=== PATIENT | female | born 1940 | race Caucasian/White ===

== ENCOUNTER 2022-01-09 21:52 | Inpatient (IN) | payer BC, MEDICARE ==
[~2022-01-09] VITALS: Ht 167.6 cm; Wt 64.4 kg
[2022-01-09] MEDS ORDERED: ISOVUE-370 76% 100ML VIAL As Ordered ONE (22:25)
[2022-01-09 22:29] LABS: BASO # 0.1 10^3/uL (0.0-0.2); BASO % 0.5 % (0.0-1.0); EOS # 0.2 10^3/uL (0.0-0.5); EOS % 1.5 % (0.0-3.0); HEMATOCRIT 46.1 % (36.0-47.0); HEMOGLOBIN 15.1 g/dl (12.0-15.5); LYMPH # 2.4 10^3/uL (1.5-5.0); LYMPH % 21.5 % (24.0-44.0); MEAN CORPUSCULAR HEMOGLOBIN 28.4 pg (27.0-33.0); MEAN CORPUSCULAR HGB CONC 32.8 g/dl (32.0-36.5); MEAN CORPUSCULAR VOLUME 86.8 fl (80.0-96.0); MONO # 0.9 10^3/uL (0.0-0.8); NEUTROPHILS # 7.7 10^3/uL (1.5-8.5); NEUTROPHILS % 68.1 % (36.0-66.0); PLATELET COUNT, AUTOMATED 364 10^3/uL (150-450); RED BLOOD COUNT 5.31 10^6/uL (4.00-5.40); WHITE BLOOD COUNT 11.3 10^3/uL (4.0-10.0)
[2022-01-09 23:11] LABS: BILIRUBIN,DIRECT 0.1 MG/DL (0.0-0.2); BILIRUBIN,TOTAL 0.3 MG/DL (0.2-1.0); TOTAL PROTEIN 8.2 GM/DL (6.4-8.2)
[2022-01-09] MEDS ORDERED: ACETAMINOPHEN TAB 650MG DOSE (2X325MG) PO ONE (23:25)
[2022-01-09] MEDS ORDERED: ENOXAPARIN 60MG/0.6ML SYRINGE (J1650 PER 10MG) SC ONE (23:40)
[2022-01-10 00:55] LABS: C REACTIVE PROTEIN QUANTITATIV 0.32 MG/DL (0.00-0.30)
[2022-01-10 01:17] LABS: ERYTHROCYTE SEDIMENTATION RATE 22 mm/hr (0-30)
[2022-01-10] MEDS: IPRATROPIUM 0.5MG/ALBUTEROL 2.5MG INH SOL UD 3ML (DUONEB) NEB SCH ×4 (02:00→20:00)
[2022-01-10 02:34] LABS: CK-MB VALUE MASS 2.9 NG/ML (<3.6); MB/CK RELATIVE INDEX 4.39 (< OR =4)
[2022-01-10] MEDS ORDERED: ACETAMINOPHEN TAB 650MG DOSE (2X325MG) PO PRN (02:35)
[2022-01-10] MEDS ORDERED: IPRATROPIUM 0.5MG/ALBUTEROL 2.5MG INH SOL UD 3ML (DUONEB) NEB PRN (02:35)
[2022-01-10] MEDS ORDERED: hydrALAZINE 20MG/ML 1ML VIAL (J0360 PER 20MG) IV ONE (04:00)
[2022-01-10 06:00] VITALS: BP 127/74
[2022-01-10 06:25] LABS: BASO % 0.4 % (0.0-1.0); EOS # 0.2 10^3/uL (0.0-0.5); EOS % 1.7 % (0.0-3.0); HEMATOCRIT 44.1 % (36.0-47.0); HEMOGLOBIN 14.6 g/dl (12.0-15.5); LYMPH # 2.6 10^3/uL (1.5-5.0); LYMPH % 27.2 % (24.0-44.0); MEAN CORPUSCULAR HEMOGLOBIN 28.6 pg (27.0-33.0); MEAN CORPUSCULAR HGB CONC 33.1 g/dl (32.0-36.5); MEAN CORPUSCULAR VOLUME 86.5 fl (80.0-96.0); MONO # 0.8 10^3/uL (0.0-0.8); MONO % 7.9 % (2.0-8.0); NEUTROPHILS # 6.1 10^3/uL (1.5-8.5); NEUTROPHILS % 62.5 % (36.0-66.0); PLATELET COUNT, AUTOMATED 333 10^3/uL (150-450); WHITE BLOOD COUNT 9.7 10^3/uL (4.0-10.0)
[2022-01-10] MEDS ORDERED: AMLO1TAB24 PO (06:31)
[2022-01-10] MEDS ORDERED: ALEN70TA82 PO (06:31)
[2022-01-10] MEDS ORDERED: CITRTAB6 PO (06:31)
[2022-01-10] MEDS ORDERED: FURO20TA2 PO (06:31)
[2022-01-10] MEDS ORDERED: ATOR40TA75 PO (06:31)
[2022-01-10] MEDS ORDERED: CLOTLOT EXT (06:31)
[2022-01-10] MEDS ORDERED: ASPI-161 PO (06:31)
[2022-01-10] MEDS ORDERED: QUET1TAB17 PO ×2 (06:31)
[2022-01-10] MEDS ORDERED: OMEG100011 PO (06:31)
[2022-01-10] MEDS ORDERED: POTA1TAB14 PO (06:31)
[2022-01-10] MEDS ORDERED: HOME MED LIST COMPLETE! XX SCH (06:35)
[2022-01-10 06:44] LABS: INR 1.07; PROTHROMBIN TIME 14.3 SECONDS (12.7-14.5)
[2022-01-10 06:45] LABS: PARTIAL THROMBOPLASTIN TIME 40.2 SECONDS (25.9-37.0)
[2022-01-10 07:07] LABS: BLOOD UREA NITROGEN 22 MG/DL (7-18); CALCIUM LEVEL 10.4 MG/DL (8.8-10.2); CARBON DIOXIDE LEVEL 27 MEQ/L (21-32); CHLORIDE LEVEL 99 MEQ/L (98-107); CREATININE FOR GFR 0.93 MG/DL (0.55-1.30); GLOMERULAR FILTRATION RATE > 60.0 (>32); GLUCOSE, FASTING 112 MG/DL (70-100); NT-PRO BNP 152 PG/ML (<450); POTASSIUM SERUM 4.3 MEQ/L (3.5-5.1); SODIUM LEVEL 132 MEQ/L (136-145)
[2022-01-10] MEDS: DOXYCYCLINE HYCLATE 100MG TABLET PO SCH ×2 (08:50→21:13)
[2022-01-10] MEDS: guaiFENesin ER 600 MG TAB PO SCH ×2 (08:50→21:13)
[2022-01-10] MEDS: LIDOCAINE 5% (LIDODERM) PATCH TD SCH (08:51)
[2022-01-10] MEDS ORDERED: ENOXAPARIN 60MG/0.6ML SYRINGE (J1650 PER 10MG) SC SCH (10:00)
[2022-01-10] MEDS ORDERED: ENOXAPARIN 40MG/0.4ML SYRINGE (J1650 PER 10MG) SC SCH (11:00)
[2022-01-10] MEDS ORDERED: KETOROLAC 30 MG/ML 1ML VIAL IV ONE (11:15)
[2022-01-10] MEDS ORDERED: MORPHINE 2 MG/ML 1ML VIAL IV PRN (11:30)
[2022-01-10] MEDS: ENOXAPARIN 60MG/0.6ML SYRINGE (J1650 PER 10MG) SC SCH ×2 (13:02→23:55)
[2022-01-10] MEDS: predniSONE 20 MG TAB PO SCH (13:02)
[2022-01-10] MEDS: ASPIRIN 81MG ENTERIC TABLET PO SCH (13:03)
[2022-01-10] MEDS: FUROSEMIDE 20 MG TAB PO SCH (13:03)
[2022-01-10] MEDS: amLODIPine 5 MG TAB PO SCH (13:03)
[2022-01-10] MEDS: SYMBICORT 160/4.5MCG INHALER 6GM INH SCH ×2 (13:34→20:00)
[2022-01-10 13:56] LABS: OSMOLALITY SERUM 284 MOSM/KG (280-301)
[2022-01-10 14:00] VITALS: BP 130/73
[2022-01-10 21:00] VITALS: BP 141/76
[2022-01-10] MEDS: QUEtiapine FUMARATE 25 MG TAB PO SCH (21:14)
[2022-01-10] MEDS: ACETAMINOPHEN 500 MG TAB PO SCH (21:14)
[2022-01-10] MEDS: **NOTE PATIENT COMMENT** MISC XX SCH (21:18)
[2022-01-11] MEDS: IPRATROPIUM 0.5MG/ALBUTEROL 2.5MG INH SOL UD 3ML (DUONEB) NEB SCH ×4 (01:32→19:41)
[2022-01-11 02:00] VITALS: O2SAT 94
[2022-01-11 05:40] VITALS: BP 141/69
[2022-01-11 06:41] LABS: BASO % 0.3 % (0.0-1.0); EOS % 0.2 % (0.0-3.0); HEMATOCRIT 41.1 % (36.0-47.0); HEMOGLOBIN 13.6 g/dl (12.0-15.5); LYMPH # 2.3 10^3/uL (1.5-5.0); LYMPH % 24.4 % (24.0-44.0); MEAN CORPUSCULAR HEMOGLOBIN 28.2 pg (27.0-33.0); MEAN CORPUSCULAR HGB CONC 33.1 g/dl (32.0-36.5); MEAN CORPUSCULAR VOLUME 85.3 fl (80.0-96.0); MONO # 0.7 10^3/uL (0.0-0.8); MONO % 7.3 % (2.0-8.0); NEUTROPHILS # 6.2 10^3/uL (1.5-8.5); NEUTROPHILS % 67.5 % (36.0-66.0); PLATELET COUNT, AUTOMATED 303 10^3/uL (150-450); RED BLOOD COUNT 4.82 10^6/uL (4.00-5.40); WHITE BLOOD COUNT 9.3 10^3/uL (4.0-10.0)
[2022-01-11 07:27] LABS: BLOOD UREA NITROGEN 19 MG/DL (7-18); CALCIUM LEVEL 9.8 MG/DL (8.8-10.2); CARBON DIOXIDE LEVEL 27 MEQ/L (21-32); CHLORIDE LEVEL 97 MEQ/L (98-107); CREATININE FOR GFR 0.93 MG/DL (0.55-1.30); GLOMERULAR FILTRATION RATE > 60.0 (>32); GLUCOSE, FASTING 94 MG/DL (70-100); MAGNESIUM LEVEL 1.9 MG/DL (1.8-2.4); PHOSPHORUS LEVEL 2.8 MG/DL (2.5-4.9); POTASSIUM SERUM 4.2 MEQ/L (3.5-5.1); SODIUM LEVEL 128 MEQ/L (136-145)
[2022-01-11] MEDS: SYMBICORT 160/4.5MCG INHALER 6GM INH SCH ×2 (07:31→19:40)
[2022-01-11 08:00] VITALS: BP 141/69
[2022-01-11] MEDS: guaiFENesin ER 600 MG TAB PO SCH ×2 (09:58→22:14)
[2022-01-11] MEDS: ACETAMINOPHEN 500 MG TAB PO SCH ×2 (09:59→22:15)
[2022-01-11] MEDS: DOXYCYCLINE HYCLATE 100MG TABLET PO SCH ×2 (10:00→22:14)
[2022-01-11] MEDS: predniSONE 20 MG TAB PO SCH (10:00)
[2022-01-11] MEDS: FUROSEMIDE 20 MG TAB PO SCH (10:00)
[2022-01-11] MEDS: amLODIPine 5 MG TAB PO SCH (10:00)
[2022-01-11] MEDS: LIDOCAINE 5% (LIDODERM) PATCH TD SCH (10:01)
[2022-01-11] MEDS: ASPIRIN 81MG ENTERIC TABLET PO SCH (10:01)
[2022-01-11] MEDS: ENOXAPARIN 60MG/0.6ML SYRINGE (J1650 PER 10MG) SC SCH ×2 (11:42→22:15)
[2022-01-11] MEDS ORDERED: NS 1,000 ML IV SCH (12:50)
[2022-01-11] MEDS: **NOTE PATIENT COMMENT** MISC XX SCH (21:27)
[2022-01-11 21:30] VITALS: BP 126/64
[2022-01-11] MEDS ORDERED: ONDANSETRON 4MG 2ML VIAL IV PRN (21:45)
[2022-01-11] MEDS ORDERED: MAALOX 30 ML SUSP *UDC PO PRN (21:45)
[2022-01-11] MEDS: QUEtiapine FUMARATE 25 MG TAB PO SCH (22:14)
[2022-01-12] MEDS: IPRATROPIUM 0.5MG/ALBUTEROL 2.5MG INH SOL UD 3ML (DUONEB) NEB SCH ×4 (02:00→19:23)
[2022-01-12 03:08] VITALS: O2SAT 96
[2022-01-12 05:05] VITALS: BP 146/71
[2022-01-12 06:37] LABS: HEMOGLOBIN 13.5 g/dl (12.0-15.5); MEAN CORPUSCULAR HEMOGLOBIN 28.4 pg (27.0-33.0); MEAN CORPUSCULAR HGB CONC 32.1 g/dl (32.0-36.5); MEAN CORPUSCULAR VOLUME 88.2 fl (80.0-96.0); PLATELET COUNT, AUTOMATED 325 10^3/uL (150-450); RED BLOOD COUNT 4.76 10^6/uL (4.00-5.40); WHITE BLOOD COUNT 10.7 10^3/uL (4.0-10.0)
[2022-01-12 07:06] LABS: CALCIUM LEVEL 9.5 MG/DL (8.8-10.2); CREATININE FOR GFR 0.95 MG/DL (0.55-1.30); GLOMERULAR FILTRATION RATE 59.8 (>32); PHOSPHORUS LEVEL 2.6 MG/DL (2.5-4.9); POTASSIUM SERUM 4.4 MEQ/L (3.5-5.1)
[2022-01-12] MEDS: SYMBICORT 160/4.5MCG INHALER 6GM INH SCH ×2 (07:20→19:23)
[2022-01-12 08:20] LABS: APPEARANCE, URINE MANUAL CLEAR (CLEAR)
[2022-01-12 08:21] LABS: BILIRUBIN, URINE MANUAL NEGATIVE (NEGATIVE); BLOOD URINE MANUAL NEGATIVE (NEGATIVE); COLOR, URINE MANUAL YELLOW (YELLOW); GLUCOSE, URINE (UA) MANUAL NEGATIVE (NEGATIVE); KETONE, URINE MANUAL NEGATIVE (NEGATIVE); LEUKOCYTE ESTERASE, URINE MAN POSITIVE (NEGATIVE); NITRITE, URINE MANUAL NEGATIVE (NEGATIVE); PROTEIN, URINE MANUAL NEGATIVE (NEGATIVE); UROBILINOGEN, URINE MANUAL NORMAL (NORMAL)
[2022-01-12 08:35] LABS: BACTERIA, URINE SMALL AMOUNT; RBC, URINE 0-1 /hpf (0-3); SQUAMOUS EPITHELIAL CELL URINE SMALL AMOUNT /hpf (SMALL AMT)
[2022-01-12 08:36] LABS: HYALINE CAST, URINE NONE SEEN /lpf (0-1)
[2022-01-12 09:00] VITALS: O2SAT 92
[2022-01-12] MEDS: DOXYCYCLINE HYCLATE 100MG TABLET PO SCH ×2 (09:29→22:17)
[2022-01-12] MEDS: ATORVASTATIN 20 MG TAB PO SCH (09:29)
[2022-01-12] MEDS: ACETAMINOPHEN 500 MG TAB PO SCH ×2 (09:30→22:18)
[2022-01-12] MEDS: amLODIPine 5 MG TAB PO SCH (09:30)
[2022-01-12] MEDS: predniSONE 20 MG TAB PO SCH (09:30)
[2022-01-12] MEDS: guaiFENesin ER 600 MG TAB PO SCH ×2 (09:30→22:16)
[2022-01-12] MEDS: ASPIRIN 81MG ENTERIC TABLET PO SCH (09:30)
[2022-01-12] MEDS: ENOXAPARIN 60MG/0.6ML SYRINGE (J1650 PER 10MG) SC SCH ×2 (09:31→22:17)
[2022-01-12] MEDS: LIDOCAINE 5% (LIDODERM) PATCH TD SCH (09:31)
[2022-01-12] MEDS ORDERED: traMADol 50 MG TAB PO PRN (11:30)
[2022-01-12] MEDS ORDERED: PILL CUTTER 1 EACH XX PRN (11:45)
[2022-01-12 14:00] VITALS: BP 143/67
[2022-01-12] MEDS ORDERED: LORazepam 0.5 MG TAB PO ONE (14:00)
[2022-01-12 17:22] VITALS: O2SAT 92
[2022-01-12 21:10] VITALS: BP 129/68
[2022-01-12] MEDS: QUEtiapine FUMARATE 25 MG TAB PO SCH (22:16)
[2022-01-12] MEDS: **NOTE PATIENT COMMENT** MISC XX SCH (22:17)
[2022-01-13 01:38] VITALS: O2SAT 92
[2022-01-13] MEDS: IPRATROPIUM 0.5MG/ALBUTEROL 2.5MG INH SOL UD 3ML (DUONEB) NEB SCH ×2 (02:00→07:20)
[2022-01-13 06:00] VITALS: BP 133/69
[2022-01-13 06:27] LABS: HEMOGLOBIN 13.2 g/dl (12.0-15.5); MEAN CORPUSCULAR HEMOGLOBIN 28.7 pg (27.0-33.0); MEAN CORPUSCULAR HGB CONC 32.2 g/dl (32.0-36.5); MEAN CORPUSCULAR VOLUME 89.1 fl (80.0-96.0); PLATELET COUNT, AUTOMATED 327 10^3/uL (150-450); WHITE BLOOD COUNT 10.5 10^3/uL (4.0-10.0)
[2022-01-13 07:07] LABS: BLOOD UREA NITROGEN 32 MG/DL (7-18); CALCIUM LEVEL 9.6 MG/DL (8.8-10.2); CARBON DIOXIDE LEVEL 29 MEQ/L (21-32); CHLORIDE LEVEL 98 MEQ/L (98-107); CREATININE FOR GFR 0.92 MG/DL (0.55-1.30); GLOMERULAR FILTRATION RATE > 60.0 (>32); GLUCOSE, FASTING 98 MG/DL (70-100); POTASSIUM SERUM 4.7 MEQ/L (3.5-5.1); SODIUM LEVEL 133 MEQ/L (136-145)
[2022-01-13] MEDS: SYMBICORT 160/4.5MCG INHALER 6GM INH SCH ×2 (07:21→19:34)
[2022-01-13] MEDS: ASPIRIN 81MG ENTERIC TABLET PO SCH (08:53)
[2022-01-13] MEDS: ATORVASTATIN 20 MG TAB PO SCH (08:56)
[2022-01-13] MEDS: ACETAMINOPHEN 500 MG TAB PO SCH ×2 (08:57→21:31)
[2022-01-13] MEDS: amLODIPine 5 MG TAB PO SCH (08:57)
[2022-01-13] MEDS: DOXYCYCLINE HYCLATE 100MG TABLET PO SCH ×2 (08:57→21:28)
[2022-01-13] MEDS: predniSONE 20 MG TAB PO SCH (08:57)
[2022-01-13] MEDS: LIDOCAINE 5% (LIDODERM) PATCH TD SCH (08:58)
[2022-01-13] MEDS: ENOXAPARIN 60MG/0.6ML SYRINGE (J1650 PER 10MG) SC SCH (08:58)
[2022-01-13] MEDS: NICOTINE 21MG/24HR 1 EA TRANSDERMAL TD SCH (12:19)
[2022-01-13] MEDS: traMADol 50 MG TAB PO PRN (16:04)
[2022-01-13 21:15] VITALS: O2SAT 94
[2022-01-13] MEDS: APIXABAN 5 MG TAB (ELIQUIS) PO SCH (21:28)
[2022-01-13] MEDS: QUEtiapine FUMARATE 25 MG TAB PO SCH (21:28)
[2022-01-13] MEDS: **NOTE PATIENT COMMENT** MISC XX SCH (21:31)
[2022-01-14] MEDS: traMADol 50 MG TAB PO PRN ×2 (04:27→13:23)
[2022-01-14 06:00] VITALS: BP 127/59
[2022-01-14 06:10] LABS: HEMATOCRIT 39.3 % (36.0-47.0); HEMOGLOBIN 12.9 g/dl (12.0-15.5); MEAN CORPUSCULAR HGB CONC 32.8 g/dl (32.0-36.5); MEAN CORPUSCULAR VOLUME 88.3 fl (80.0-96.0); PLATELET COUNT, AUTOMATED 318 10^3/uL (150-450); RED BLOOD COUNT 4.45 10^6/uL (4.00-5.40); WHITE BLOOD COUNT 11.3 10^3/uL (4.0-10.0)
[2022-01-14 06:52] LABS: BLOOD UREA NITROGEN 28 MG/DL (7-18); CARBON DIOXIDE LEVEL 31 MEQ/L (21-32); CHLORIDE LEVEL 99 MEQ/L (98-107); CREATININE FOR GFR 0.92 MG/DL (0.55-1.30); GLOMERULAR FILTRATION RATE > 60.0 (>32); GLUCOSE, FASTING 98 MG/DL (70-100); MAGNESIUM LEVEL 2.2 MG/DL (1.8-2.4); PHOSPHORUS LEVEL 3.1 MG/DL (2.5-4.9); POTASSIUM SERUM 4.6 MEQ/L (3.5-5.1); SODIUM LEVEL 132 MEQ/L (136-145)
[2022-01-14] MEDS: SYMBICORT 160/4.5MCG INHALER 6GM INH SCH ×2 (07:43→19:27)
[2022-01-14] MEDS: ASPIRIN 81MG ENTERIC TABLET PO SCH (09:26)
[2022-01-14] MEDS: APIXABAN 5 MG TAB (ELIQUIS) PO SCH ×2 (09:26→20:30)
[2022-01-14] MEDS: predniSONE 20 MG TAB PO SCH (09:26)
[2022-01-14] MEDS: DOXYCYCLINE HYCLATE 100MG TABLET PO SCH ×2 (09:26→20:30)
[2022-01-14] MEDS: ATORVASTATIN 20 MG TAB PO SCH (09:26)
[2022-01-14] MEDS: amLODIPine 5 MG TAB PO SCH (09:27)
[2022-01-14] MEDS: ACETAMINOPHEN 500 MG TAB PO SCH ×2 (09:27→20:29)
[2022-01-14] MEDS: LIDOCAINE 5% (LIDODERM) PATCH TD SCH (09:28)
[2022-01-14] MEDS: NICOTINE 21MG/24HR 1 EA TRANSDERMAL TD SCH (09:28)
[2022-01-14] MEDS: FUROSEMIDE 20 MG TAB PO SCH (16:45)
[2022-01-14] MEDS: **NOTE PATIENT COMMENT** MISC XX SCH (20:30)
[2022-01-14] MEDS: QUEtiapine FUMARATE 25 MG TAB PO SCH (20:30)
[2022-01-15 00:03] VITALS: O2SAT 92
[2022-01-15 06:00] VITALS: BP 123/66
[2022-01-15 06:09] LABS: HEMATOCRIT 39.3 % (36.0-47.0); HEMOGLOBIN 12.5 g/dl (12.0-15.5); MEAN CORPUSCULAR HGB CONC 31.8 g/dl (32.0-36.5); MEAN CORPUSCULAR VOLUME 87.9 fl (80.0-96.0); PLATELET COUNT, AUTOMATED 325 10^3/uL (150-450); RED BLOOD COUNT 4.47 10^6/uL (4.00-5.40); WHITE BLOOD COUNT 11.8 10^3/uL (4.0-10.0)
[2022-01-15 06:58] LABS: BLOOD UREA NITROGEN 38 MG/DL (7-18); CALCIUM LEVEL 10.1 MG/DL (8.8-10.2); CARBON DIOXIDE LEVEL 30 MEQ/L (21-32); CHLORIDE LEVEL 98 MEQ/L (98-107); CREATININE FOR GFR 0.91 MG/DL (0.55-1.30); GLOMERULAR FILTRATION RATE > 60.0 (>32); GLUCOSE, FASTING 110 MG/DL (70-100); MAGNESIUM LEVEL 2.2 MG/DL (1.8-2.4); PHOSPHORUS LEVEL 4.1 MG/DL (2.5-4.9); POTASSIUM SERUM 4.8 MEQ/L (3.5-5.1); SODIUM LEVEL 132 MEQ/L (136-145)
[2022-01-15] MEDS: SYMBICORT 160/4.5MCG INHALER 6GM INH SCH ×2 (07:17→20:01)
[2022-01-15 09:00] VITALS: O2SAT 94
[2022-01-15] MEDS: APIXABAN 5 MG TAB (ELIQUIS) PO SCH ×2 (09:03→20:23)
[2022-01-15] MEDS: ACETAMINOPHEN 500 MG TAB PO SCH ×2 (09:03→20:25)
[2022-01-15] MEDS: predniSONE 20 MG TAB PO SCH (09:03)
[2022-01-15] MEDS: ASPIRIN 81MG ENTERIC TABLET PO SCH (09:03)
[2022-01-15] MEDS: ATORVASTATIN 20 MG TAB PO SCH (09:03)
[2022-01-15] MEDS: LIDOCAINE 5% (LIDODERM) PATCH TD SCH (09:04)
[2022-01-15] MEDS: amLODIPine 5 MG TAB PO SCH (09:04)
[2022-01-15] MEDS: NICOTINE 21MG/24HR 1 EA TRANSDERMAL TD SCH (09:04)
[2022-01-15] MEDS: traMADol 50 MG TAB PO PRN (12:07)
[2022-01-15] MEDS ORDERED: SODIUM CHLORIDE NASAL 0.65% SPRAY BTL (OCEAN) PRN (14:10)
[2022-01-15] MEDS: QUEtiapine FUMARATE 25 MG TAB PO SCH (20:23)
[2022-01-15] MEDS: **NOTE PATIENT COMMENT** MISC XX SCH (20:25)
[2022-01-15 22:50] VITALS: O2SAT 92
[2022-01-16 06:00] VITALS: BP 149/73
[2022-01-16 06:09] LABS: HEMATOCRIT 38.9 % (36.0-47.0); HEMOGLOBIN 12.6 g/dl (12.0-15.5); MEAN CORPUSCULAR HEMOGLOBIN 28.5 pg (27.0-33.0); MEAN CORPUSCULAR HGB CONC 32.4 g/dl (32.0-36.5); PLATELET COUNT, AUTOMATED 337 10^3/uL (150-450); RED BLOOD COUNT 4.42 10^6/uL (4.00-5.40); WHITE BLOOD COUNT 11.5 10^3/uL (4.0-10.0)
[2022-01-16 06:54] LABS: BLOOD UREA NITROGEN 30 MG/DL (7-18); CALCIUM LEVEL 10.2 MG/DL (8.8-10.2); CARBON DIOXIDE LEVEL 30 MEQ/L (21-32); CHLORIDE LEVEL 100 MEQ/L (98-107); CREATININE FOR GFR 0.87 MG/DL (0.55-1.30); GLOMERULAR FILTRATION RATE > 60.0 (>32); GLUCOSE, FASTING 103 MG/DL (70-100); MAGNESIUM LEVEL 2.3 MG/DL (1.8-2.4); POTASSIUM SERUM 4.5 MEQ/L (3.5-5.1); SODIUM LEVEL 133 MEQ/L (136-145); THYROID STIMULATING HORMONE 0.736 uIU/ML (0.358-3.740)
[2022-01-16] MEDS: SYMBICORT 160/4.5MCG INHALER 6GM INH SCH ×2 (07:15→19:13)
[2022-01-16] MEDS: ASPIRIN 81MG ENTERIC TABLET PO SCH (08:49)
[2022-01-16] MEDS: APIXABAN 5 MG TAB (ELIQUIS) PO SCH ×2 (08:49→20:47)
[2022-01-16] MEDS: ATORVASTATIN 20 MG TAB PO SCH (08:49)
[2022-01-16] MEDS: ACETAMINOPHEN 500 MG TAB PO SCH ×2 (08:50→20:47)
[2022-01-16] MEDS: NICOTINE 21MG/24HR 1 EA TRANSDERMAL TD SCH (08:50)
[2022-01-16] MEDS: amLODIPine 5 MG TAB PO SCH (08:50)
[2022-01-16] MEDS: FUROSEMIDE 20 MG TAB PO SCH (08:51)
[2022-01-16] MEDS: LIDOCAINE 5% (LIDODERM) PATCH TD SCH (08:51)
[2022-01-16] MEDS: QUEtiapine FUMARATE 25 MG TAB PO SCH (20:47)
[2022-01-16] MEDS: **NOTE PATIENT COMMENT** MISC XX SCH (20:50)
[2022-01-16 23:07] VITALS: O2SAT 92
[2022-01-17 06:00] VITALS: BP 118/63
[2022-01-17] MEDS: SYMBICORT 160/4.5MCG INHALER 6GM INH SCH ×2 (07:14→19:49)
[2022-01-17] MEDS: NICOTINE 21MG/24HR 1 EA TRANSDERMAL TD SCH (09:15)
[2022-01-17] MEDS: APIXABAN 5 MG TAB (ELIQUIS) PO SCH ×2 (09:16→20:18)
[2022-01-17] MEDS: ATORVASTATIN 20 MG TAB PO SCH (09:16)
[2022-01-17] MEDS: LIDOCAINE 5% (LIDODERM) PATCH TD SCH (09:16)
[2022-01-17] MEDS: ASPIRIN 81MG ENTERIC TABLET PO SCH (09:17)
[2022-01-17] MEDS: ACETAMINOPHEN 500 MG TAB PO SCH ×2 (09:18→20:19)
[2022-01-17] MEDS: amLODIPine 5 MG TAB PO SCH (09:18)
[2022-01-17 10:30] VITALS: O2SAT 84
[2022-01-17 10:33] VITALS: O2SAT 92
[2022-01-17] MEDS: QUEtiapine FUMARATE 25 MG TAB PO SCH (20:18)
[2022-01-17] MEDS: **NOTE PATIENT COMMENT** MISC XX SCH (20:20)
[2022-01-17 22:17] VITALS: O2SAT 93
[2022-01-18 06:00] VITALS: BP 118/63
[2022-01-18] MEDS: traMADol 50 MG TAB PO PRN (06:08)
[2022-01-18] MEDS: SYMBICORT 160/4.5MCG INHALER 6GM INH SCH (08:00)
[2022-01-18] MEDS ORDERED: ELIQ5TAB PO (08:29)
[2022-01-18] MEDS ORDERED: FURO20TA2 PO (08:29)
[2022-01-18] MEDS ORDERED: ACET-683 PO (08:29)
[2022-01-18] MEDS ORDERED: TRAM50TA2 PO (08:29)
[2022-01-18] MEDS ORDERED: SYMB16INH INH (08:29)
[2022-01-18] MEDS ORDERED: NICO21PAT TD (08:29)
[2022-01-18] MEDS ORDERED: LIDO5TD TD (08:29)
[2022-01-18 09:00] LABS: HEMATOCRIT 42.5 % (36.0-47.0); HEMOGLOBIN 13.5 g/dl (12.0-15.5); MEAN CORPUSCULAR HEMOGLOBIN 28.2 pg (27.0-33.0); MEAN CORPUSCULAR HGB CONC 31.8 g/dl (32.0-36.5); MEAN CORPUSCULAR VOLUME 88.7 fl (80.0-96.0); PLATELET COUNT, AUTOMATED 346 10^3/uL (150-450); RED BLOOD COUNT 4.79 10^6/uL (4.00-5.40); WHITE BLOOD COUNT 9.2 10^3/uL (4.0-10.0)
[2022-01-18 09:34] LABS: BLOOD UREA NITROGEN 22 MG/DL (7-18); CALCIUM LEVEL 9.4 MG/DL (8.8-10.2); CARBON DIOXIDE LEVEL 32 MEQ/L (21-32); CHLORIDE LEVEL 100 MEQ/L (98-107); CREATININE FOR GFR 0.91 MG/DL (0.55-1.30); GLOMERULAR FILTRATION RATE > 60.0 (>32); GLUCOSE, FASTING 109 MG/DL (70-100); SODIUM LEVEL 133 MEQ/L (136-145)
[2022-01-18] MEDS: NICOTINE 21MG/24HR 1 EA TRANSDERMAL TD SCH (10:23)
[2022-01-18] MEDS: LIDOCAINE 5% (LIDODERM) PATCH TD SCH (10:24)
[2022-01-18] MEDS: ATORVASTATIN 20 MG TAB PO SCH (10:24)
[2022-01-18] MEDS: APIXABAN 5 MG TAB (ELIQUIS) PO SCH (10:24)
[2022-01-18] MEDS: FUROSEMIDE 20 MG TAB PO SCH (10:24)
[2022-01-18] MEDS: ASPIRIN 81MG ENTERIC TABLET PO SCH (10:24)
[2022-01-18 10:25] VITALS: BP 130/70
[2022-01-18] MEDS: amLODIPine 5 MG TAB PO SCH (10:25)
[2022-01-18] MEDS: ACETAMINOPHEN 500 MG TAB PO SCH (10:26)
[2022-01-20] MEDS ORDERED: APIXABAN 5 MG TAB (ELIQUIS) PO SCH (21:00)
== END 2022-01-18 15:28 | disposition home or self-care (01) | DRG 183 ==
LOC: M ED 21:52 → EDBD 21:52 → M ED INP 21:53 → ENRESERV 01-10 04:14 → M MSPAV 01-10 05:09 → OBSVTOIN 01-12 11:33
PROVIDERS: ADMIT Internal Medicine; ATTEND Student in an Organized Health Care Education/Training Program
DX: S22.41XA Multiple fractures of ribs, right side, initial encounter for closed fracture (principal); J96.01 Acute respiratory failure with hypoxia; I26.99 Other pulmonary embolism without acute cor pulmonale; J44.0 Chronic obstructive pulmonary disease with (acute) lower respiratory infection; E87.1 Hypo-osmolality and hyponatremia; R07.89 Other chest pain; I10 Essential (primary) hypertension; F17.200 Nicotine dependence, unspecified, uncomplicated; R53.81 Other malaise; H91.93 Unspecified hearing loss, bilateral; Z79.82 Long term (current) use of aspirin; Z79.899 Other long term (current) drug therapy; Z91.040 Latex allergy status; J40 Bronchitis, not specified as acute or chronic; K76.89 Other specified diseases of liver; R09.02 Hypoxemia; W06.XXXA Fall from bed, initial encounter; Y92.013 Bedroom of single-family (private) house as the place of occurrence of the external cause; R60.0 Localized edema; F01.50 Vascular dementia, unspecified severity, without behavioral disturbance, psychotic disturbance, mood disturbance, and anxiety; E87.8 Other disorders of electrolyte and fluid balance, not elsewhere classified; Y92.092 Bedroom in other non-institutional residence as the place of occurrence of the external cause; Y93.89 Activity, other specified; Y99.8 Other external cause status

== ENCOUNTER 2022-01-21 09:45 | Inpatient (IN) | payer MEDICARE ==
[~2022-01-21] VITALS: Ht 167.6 cm; Wt 69.5 kg
[~2022-01-21 09:45] MED LIST: ACET-683 PO; ALEN70TA82 PO; AMLO1TAB24 PO; ASPI-161 PO; ATOR40TA75 PO; CITRTAB6 PO; CLOTLOT EXT; ELIQ5TAB PO; FURO20TA2 PO; LIDO5TD TD; NICO21PAT TD; OMEG100011 PO; POTA1TAB14 PO; QUET1TAB17 PO; SYMB16INH INH; TRAM50TA2 PO
[2022-01-21 10:23] LABS: VENOUS BASE EXCESS 4.3 (-2.0-2.0); VENOUS HCO3 32.6 MEQ/L (23.0-27.0); VENOUS O2 SATURATION 66.6 % (60.0-80.0); VENOUS PARTIAL PRESSURE CO2 66.3 mmHg (38.0-50.0); VENOUS PARTIAL PRESSURE O2 35.8 mmHg (30.0-50.0); VENOUS PH 7.309 UNITS (7.330-7.430); VENOUS STANDARD HCO3 27.6 MEQ/L; VENOUS TOTAL CO2 34.6 MEQ/L (24.0-28.0)
[2022-01-21 10:26] LABS: BASO % 0.3 % (0.0-1.0); EOS # 0.3 10^3/uL (0.0-0.5); EOS % 1.9 % (0.0-3.0); HEMATOCRIT 39.2 % (36.0-47.0); HEMOGLOBIN 12.5 g/dl (12.0-15.5); LYMPH # 2.2 10^3/uL (1.5-5.0); LYMPH % 17.1 % (24.0-44.0); MEAN CORPUSCULAR HEMOGLOBIN 28.9 pg (27.0-33.0); MEAN CORPUSCULAR HGB CONC 31.9 g/dl (32.0-36.5); MEAN CORPUSCULAR VOLUME 90.5 fl (80.0-96.0); MONO # 1.3 10^3/uL (0.0-0.8); NEUTROPHILS # 9.2 10^3/uL (1.5-8.5); NEUTROPHILS % 70.1 % (36.0-66.0); PLATELET COUNT, AUTOMATED 332 10^3/uL (150-450); RED BLOOD COUNT 4.33 10^6/uL (4.00-5.40); WHITE BLOOD COUNT 13.1 10^3/uL (4.0-10.0)
[2022-01-21] MEDS: NS 1,000 ML IV SCH ×2 (10:35→16:44)
[2022-01-21 10:52] LABS: OSMOLALITY SERUM 293 MOSM/KG (280-301)
[2022-01-21 11:14] LABS: ALBUMIN 3.1 GM/DL (3.2-5.2); ALT/SGPT 71 U/L (12-78); BILIRUBIN,DIRECT < 0.1 MG/DL (0.0-0.2); BILIRUBIN,TOTAL 0.3 MG/DL (0.2-1.0); BLOOD UREA NITROGEN 40 MG/DL (7-18); CALCIUM LEVEL 10.1 MG/DL (8.8-10.2); CARBON DIOXIDE LEVEL 31 MEQ/L (21-32); CHLORIDE LEVEL 98 MEQ/L (98-107); GLOMERULAR FILTRATION RATE > 60.0 (>32); GLUCOSE, FASTING 91 MG/DL (70-100); POTASSIUM SERUM 4.8 MEQ/L (3.5-5.1); SODIUM LEVEL 135 MEQ/L (136-145); TOTAL PROTEIN 6.5 GM/DL (6.4-8.2)
[2022-01-21] MEDS ORDERED: ISOVUE-370 76% 100ML VIAL As Ordered ONE (11:41)
[2022-01-21] MEDS ORDERED: ACETAMINOPHEN 500 MG TAB PO PRN (13:25)
[2022-01-21] MEDS ORDERED: MIRALAX *UNIT DOSE* 17GM PACKET PO PRN (13:25)
[2022-01-21] MEDS ORDERED: SYMB16INH INH (13:34)
[2022-01-21] MEDS ORDERED: ELIQ5TAB PO (13:34)
[2022-01-21] MEDS ORDERED: TRAM50TA2 PO (13:34)
[2022-01-21] MEDS ORDERED: ACET-683 PO (13:34)
[2022-01-21] MEDS ORDERED: LIDO1PAD TOP (13:34)
[2022-01-21] MEDS ORDERED: HOME MED LIST COMPLETE! XX SCH (13:35)
[2022-01-21 14:22] LABS: RSV AMPLIFICATION NEGATIVE (NEGATIVE)
[2022-01-21] MEDS: LIDOCAINE 5% (LIDODERM) PATCH TD SCH (15:12)
[2022-01-21 16:00] VITALS: BP 134/57
[2022-01-21] MEDS: SYMBICORT 160/4.5MCG INHALER 6GM INH SCH (20:00)
[2022-01-21] MEDS: SENNA 8.6 MG TAB (SENOKOT) PO SCH (20:36)
[2022-01-21] MEDS: QUEtiapine FUMARATE 50MG TAB PO SCH (20:36)
[2022-01-21] MEDS: APIXABAN 5 MG TAB (ELIQUIS) PO SCH (20:36)
[2022-01-21] MEDS: **NOTE PATIENT COMMENT** MISC XX SCH (20:39)
[2022-01-21 22:00] VITALS: BP 132/57
[2022-01-22 02:00] VITALS: BP 118/58
[2022-01-22] MEDS: NS 1,000 ML IV SCH ×2 (02:56→16:12)
[2022-01-22 06:00] VITALS: BP 128/60
[2022-01-22 07:34] LABS: BLOOD UREA NITROGEN 30 MG/DL (7-18); CALCIUM LEVEL 9.6 MG/DL (8.8-10.2); CARBON DIOXIDE LEVEL 29 MEQ/L (21-32); CHLORIDE LEVEL 105 MEQ/L (98-107); GLOMERULAR FILTRATION RATE > 60.0 (>32); GLUCOSE, FASTING 102 MG/DL (70-100); POTASSIUM SERUM 4.9 MEQ/L (3.5-5.1); SODIUM LEVEL 137 MEQ/L (136-145)
[2022-01-22 07:35] LABS: ALBUMIN 2.9 GM/DL (3.2-5.2); ALT/SGPT 59 U/L (12-78); BILIRUBIN,TOTAL 0.3 MG/DL (0.2-1.0)
[2022-01-22] MEDS: SYMBICORT 160/4.5MCG INHALER 6GM INH SCH ×2 (07:52→19:44)
[2022-01-22] MEDS ORDERED: ONDANSETRON 4MG 2ML VIAL IV PRN (09:15)
[2022-01-22] MEDS: LIDOCAINE 5% (LIDODERM) PATCH TD SCH (11:30)
[2022-01-22] MEDS: SENNA 8.6 MG TAB (SENOKOT) PO SCH ×2 (11:31→20:22)
[2022-01-22] MEDS: ATORVASTATIN 20 MG TAB PO SCH (11:31)
[2022-01-22] MEDS: APIXABAN 5 MG TAB (ELIQUIS) PO SCH ×2 (11:31→20:23)
[2022-01-22] MEDS: QUEtiapine FUMARATE 25 MG TAB PO SCH (11:31)
[2022-01-22] MEDS: oxyCODONE 5MG TAB PO PRN ×2 (11:47→20:25)
[2022-01-22 14:00] VITALS: BP 125/61
[2022-01-22] MEDS ORDERED: FLEET OIL RETENTION ENEMA PR PRN (14:45)
[2022-01-22] MEDS: QUEtiapine FUMARATE 50MG TAB PO SCH (20:23)
[2022-01-22] MEDS: **NOTE PATIENT COMMENT** MISC XX SCH (20:25)
[2022-01-22 22:00] VITALS: BP 123/59
[2022-01-23] MEDS: NS 1,000 ML IV SCH (01:55)
[2022-01-23] MEDS: oxyCODONE 5MG TAB PO PRN (05:43)
[2022-01-23 06:00] VITALS: BP 133/60
[2022-01-23 06:58] LABS: HEMATOCRIT 36.2 % (36.0-47.0); HEMOGLOBIN 11.4 g/dl (12.0-15.5); MEAN CORPUSCULAR HEMOGLOBIN 29.1 pg (27.0-33.0); MEAN CORPUSCULAR HGB CONC 31.5 g/dl (32.0-36.5); MEAN CORPUSCULAR VOLUME 92.3 fl (80.0-96.0); PLATELET COUNT, AUTOMATED 263 10^3/uL (150-450); RED BLOOD COUNT 3.92 10^6/uL (4.00-5.40); WHITE BLOOD COUNT 9.2 10^3/uL (4.0-10.0)
[2022-01-23] MEDS: SYMBICORT 160/4.5MCG INHALER 6GM INH SCH ×2 (07:12→19:45)
[2022-01-23 07:22] LABS: BLOOD UREA NITROGEN 23 MG/DL (7-18); CALCIUM LEVEL 9.4 MG/DL (8.8-10.2); CARBON DIOXIDE LEVEL 28 MEQ/L (21-32); CHLORIDE LEVEL 107 MEQ/L (98-107); CREATININE FOR GFR 0.79 MG/DL (0.55-1.30); GLOMERULAR FILTRATION RATE > 60.0 (>32); GLUCOSE, FASTING 99 MG/DL (70-100); POTASSIUM SERUM 4.4 MEQ/L (3.5-5.1); SODIUM LEVEL 136 MEQ/L (136-145)
[2022-01-23] MEDS: ATORVASTATIN 20 MG TAB PO SCH (08:21)
[2022-01-23] MEDS: QUEtiapine FUMARATE 25 MG TAB PO SCH (08:21)
[2022-01-23] MEDS: SENNA 8.6 MG TAB (SENOKOT) PO SCH ×2 (08:21→22:12)
[2022-01-23] MEDS: APIXABAN 5 MG TAB (ELIQUIS) PO SCH ×2 (08:22→22:12)
[2022-01-23] MEDS: LIDOCAINE 5% (LIDODERM) PATCH TD SCH (08:22)
[2022-01-23] MEDS: DOCUSATE SODIUM 100MG CAPSULE PO SCH ×2 (12:34→22:12)
[2022-01-23 14:00] VITALS: BP 137/65
[2022-01-23] MEDS ORDERED: LACTULOSE 20 GM/30 ML SYRUP UD PO ONE (17:05)
[2022-01-23] MEDS: **NOTE PATIENT COMMENT** MISC XX SCH (21:00)
[2022-01-23 21:47] VITALS: BP 136/65
[2022-01-23] MEDS: QUEtiapine FUMARATE 50MG TAB PO SCH (22:12)
[2022-01-24] MEDS: ACETAMINOPHEN TAB 650MG DOSE (2X325MG) PO PRN ×2 (05:59→20:02)
[2022-01-24 06:04] VITALS: BP 135/69
[2022-01-24 06:06] LABS: HEMATOCRIT 36.9 % (36.0-47.0); HEMOGLOBIN 11.7 g/dl (12.0-15.5); MEAN CORPUSCULAR HEMOGLOBIN 28.4 pg (27.0-33.0); MEAN CORPUSCULAR HGB CONC 31.7 g/dl (32.0-36.5); MEAN CORPUSCULAR VOLUME 89.6 fl (80.0-96.0); PLATELET COUNT, AUTOMATED 280 10^3/uL (150-450); RED BLOOD COUNT 4.12 10^6/uL (4.00-5.40); WHITE BLOOD COUNT 9.7 10^3/uL (4.0-10.0)
[2022-01-24 06:36] LABS: BLOOD UREA NITROGEN 18 MG/DL (7-18); CALCIUM LEVEL 9.7 MG/DL (8.8-10.2); CARBON DIOXIDE LEVEL 27 MEQ/L (21-32); CHLORIDE LEVEL 108 MEQ/L (98-107); CREATININE FOR GFR 0.65 MG/DL (0.55-1.30); GLOMERULAR FILTRATION RATE > 60.0 (>32); GLUCOSE, FASTING 92 MG/DL (70-100); POTASSIUM SERUM 4.2 MEQ/L (3.5-5.1); SODIUM LEVEL 139 MEQ/L (136-145)
[2022-01-24] MEDS: SYMBICORT 160/4.5MCG INHALER 6GM INH SCH ×2 (08:00→19:26)
[2022-01-24] MEDS ORDERED: ISOVUE-370 76% 100ML VIAL As Ordered ONE (08:26)
[2022-01-24] MEDS: ATORVASTATIN 20 MG TAB PO SCH (08:51)
[2022-01-24] MEDS: SENNA 8.6 MG TAB (SENOKOT) PO SCH ×2 (08:51→20:02)
[2022-01-24] MEDS: QUEtiapine FUMARATE 25 MG TAB PO SCH (08:51)
[2022-01-24] MEDS: DOCUSATE SODIUM 100MG CAPSULE PO SCH ×2 (08:51→20:02)
[2022-01-24] MEDS: APIXABAN 5 MG TAB (ELIQUIS) PO SCH (08:51)
[2022-01-24] MEDS: LIDOCAINE 5% (LIDODERM) PATCH TD SCH (08:52)
[2022-01-24 14:00] VITALS: BP_SYST 120; BP_SYST 136; BP_DIAS 67; BP_DIAS 76
[2022-01-24] MEDS: QUEtiapine FUMARATE 50MG TAB PO SCH (20:02)
[2022-01-24] MEDS: **NOTE PATIENT COMMENT** MISC XX SCH (20:04)
[2022-01-25] MEDS: PERCOCET 5MG/325MG TAB PO PRN ×2 (04:28→20:33)
[2022-01-25 06:33] VITALS: BP 158/73
[2022-01-25] MEDS: SYMBICORT 160/4.5MCG INHALER 6GM INH SCH ×2 (07:18→20:36)
[2022-01-25 07:34] LABS: HEMATOCRIT 37.1 % (36.0-47.0); HEMOGLOBIN 11.9 g/dl (12.0-15.5); MEAN CORPUSCULAR HGB CONC 32.1 g/dl (32.0-36.5); MEAN CORPUSCULAR VOLUME 90.3 fl (80.0-96.0); PLATELET COUNT, AUTOMATED 275 10^3/uL (150-450); RED BLOOD COUNT 4.11 10^6/uL (4.00-5.40); WHITE BLOOD COUNT 8.1 10^3/uL (4.0-10.0)
[2022-01-25 07:59] LABS: BLOOD UREA NITROGEN 19 MG/DL (7-18); CALCIUM LEVEL 9.4 MG/DL (8.8-10.2); CARBON DIOXIDE LEVEL 28 MEQ/L (21-32); CHLORIDE LEVEL 107 MEQ/L (98-107); CREATININE FOR GFR 0.71 MG/DL (0.55-1.30); GLOMERULAR FILTRATION RATE > 60.0 (>32); GLUCOSE, FASTING 93 MG/DL (70-100); POTASSIUM SERUM 4.5 MEQ/L (3.5-5.1); SODIUM LEVEL 138 MEQ/L (136-145)
[2022-01-25] MEDS: LIDOCAINE 5% (LIDODERM) PATCH TD SCH (08:27)
[2022-01-25] MEDS: SENNA 8.6 MG TAB (SENOKOT) PO SCH ×2 (08:27→20:26)
[2022-01-25] MEDS: DOCUSATE SODIUM 100MG CAPSULE PO SCH ×2 (08:27→20:26)
[2022-01-25] MEDS: QUEtiapine FUMARATE 25 MG TAB PO SCH (08:27)
[2022-01-25] MEDS: ATORVASTATIN 20 MG TAB PO SCH (08:27)
[2022-01-25] MEDS ORDERED: COLA100C5 PO (18:54)
[2022-01-25] MEDS ORDERED: SENN18TA PO (18:54)
[2022-01-25] MEDS ORDERED: MIRA1POW3 PO (18:54)
[2022-01-25] MEDS: QUEtiapine FUMARATE 50MG TAB PO SCH (20:26)
[2022-01-25] MEDS: **NOTE PATIENT COMMENT** MISC XX SCH (20:32)
[2022-01-26] MEDS: PERCOCET 5MG/325MG TAB PO PRN (05:59)
[2022-01-26 06:00] VITALS: BP 162/81
[2022-01-26] MEDS: SYMBICORT 160/4.5MCG INHALER 6GM INH SCH (07:32)
[2022-01-26] MEDS: QUEtiapine FUMARATE 25 MG TAB PO SCH (08:47)
[2022-01-26] MEDS: SENNA 8.6 MG TAB (SENOKOT) PO SCH (08:48)
[2022-01-26] MEDS: DOCUSATE SODIUM 100MG CAPSULE PO SCH (08:48)
[2022-01-26] MEDS: ATORVASTATIN 20 MG TAB PO SCH (08:49)
[2022-01-26] MEDS: LIDOCAINE 5% (LIDODERM) PATCH TD SCH (08:50)
== END 2022-01-26 14:46 | disposition home or self-care (01) | DRG 189 ==
LOC: M ED 09:45 → M ED INP 13:34 → ENRESERV 15:06 → M MSPAV 15:30
PROVIDERS: ADMIT Internal Medicine; ATTEND Internal Medicine
DX: J96.01 Acute respiratory failure with hypoxia (principal); J98.11 Atelectasis; S22.31XD Fracture of one rib, right side, subsequent encounter for fracture with routine healing; K59.03 Drug induced constipation; J44.9 Chronic obstructive pulmonary disease, unspecified; F01.50 Vascular dementia, unspecified severity, without behavioral disturbance, psychotic disturbance, mood disturbance, and anxiety; I10 Essential (primary) hypertension; K76.89 Other specified diseases of liver; R54 Age-related physical debility; Z66 Do not resuscitate; R60.0 Localized edema; I87.2 Venous insufficiency (chronic) (peripheral); Z79.01 Long term (current) use of anticoagulants; Z79.82 Long term (current) use of aspirin; Z79.899 Other long term (current) drug therapy; Z91.040 Latex allergy status; T40.2X5A Adverse effect of other opioids, initial encounter; Z87.891 Personal history of nicotine dependence

== ENCOUNTER → 2022-01-31 | Outpatient (REF) | payer MEDICARE ==
[~2022-01-31] MED LIST changes: +COLA100C5 PO; +LIDO1PAD TOP; +MIRA1POW3 PO; +SENN18TA PO
[2022-01-31 22:31] LABS: APPEARANCE, URINE MANUAL HAZY (CLEAR); COLOR, URINE MANUAL YELLOW (YELLOW)
[2022-01-31 22:32] LABS: BILIRUBIN, URINE MANUAL NEGATIVE (NEGATIVE); BLOOD URINE MANUAL NEGATIVE (NEGATIVE); GLUCOSE, URINE (UA) MANUAL NEGATIVE (NEGATIVE); KETONE, URINE MANUAL NEGATIVE (NEGATIVE); NITRITE, URINE MANUAL NEGATIVE (NEGATIVE); PROTEIN, URINE MANUAL NEGATIVE (NEGATIVE); SPECIFIC GRAVITY,URINE MANUAL 1.005 (1.002-1.035); UROBILINOGEN, URINE MANUAL NORMAL (NORMAL)
[2022-01-31 22:33] LABS: LEUKOCYTE ESTERASE, URINE MAN TRACE (NEGATIVE)
[2022-01-31 23:02] LABS: RBC, URINE NONE SEEN /hpf (0-3)
[2022-01-31 23:03] LABS: AMORPHOUS SEDIMENT, URINE MOD AMOUNT (NEGATIVE); BACTERIA, URINE NONE SEEN; HYALINE CAST, URINE NONE SEEN /lpf (0-1); SQUAMOUS EPITHELIAL CELL URINE SMALL AMOUNT /hpf (SMALL AMT)
== END ==
LOC: M LAB REF 21:38
PROVIDERS: ATTEND Physician Assistant
DX: N39.0 Urinary tract infection, site not specified (principal)

== ENCOUNTER → 2022-02-14 | Outpatient (REF) | payer MEDICARE, BC ==
[2022-02-14 20:39] LABS: APPEARANCE, URINE MANUAL CLEAR (CLEAR); COLOR, URINE MANUAL LT YELLOW (YELLOW)
[2022-02-14 20:40] LABS: BILIRUBIN, URINE MANUAL NEGATIVE (NEGATIVE); BLOOD URINE MANUAL NEGATIVE (NEGATIVE); GLUCOSE, URINE (UA) MANUAL NEGATIVE (NEGATIVE); KETONE, URINE MANUAL NEGATIVE (NEGATIVE); LEUKOCYTE ESTERASE, URINE MAN NEGATIVE (NEGATIVE); NITRITE, URINE MANUAL NEGATIVE (NEGATIVE); PH,URINE MAN 6.5 UNITS (5.0 - 7.0); PROTEIN, URINE MANUAL NEGATIVE (NEGATIVE); UROBILINOGEN, URINE MANUAL NORMAL (NORMAL)
== END ==
LOC: M LAB REF 17:53
PROVIDERS: ATTEND Student in an Organized Health Care Education/Training Program
DX: R30.0 Dysuria (principal)

== ENCOUNTER → 2022-03-17 | Outpatient (CLI) | payer MEDICARE, BC ==
[2022-03-17 12:20] LABS: ALBUMIN 3.3 GM/DL (3.2-5.2); BILIRUBIN,TOTAL 0.2 MG/DL (0.2-1.0); CALCIUM LEVEL 10.7 MG/DL (8.8-10.2); CREATININE FOR GFR 0.96 MG/DL (0.55-1.30); GLOMERULAR FILTRATION RATE 59.1 (>32); POTASSIUM SERUM 4.2 MEQ/L (3.5-5.1); TOTAL PROTEIN 7.6 GM/DL (6.4-8.2)
== END ==
LOC: M LAB 10:47
PROVIDERS: ATTEND Student in an Organized Health Care Education/Training Program
DX: E87.5 Hyperkalemia (principal)

== ENCOUNTER → 2022-04-07 | Outpatient (CLI) | payer MEDICARE, BC ==
[2022-04-07 11:28] LABS: HEMOGLOBIN A1c 6.2 % (4.0-6.0)
[2022-04-07 11:29] LABS: PTH INTACT 29.2 PG/ML (18.5-88.0)
== END ==
LOC: M LAB 10:41
PROVIDERS: ATTEND Student in an Organized Health Care Education/Training Program
DX: R73.01 Impaired fasting glucose (principal); E83.52 Hypercalcemia

== ENCOUNTER 2022-04-19 19:24 | Emergency (ER) | payer MEDICARE, BC ==
[2022-04-19 20:52] LABS: BASO # 0.1 10^3/uL (0.0-0.2); BASO % 0.8 % (0.0-1.0); EOS # 0.5 10^3/uL (0.0-0.5); EOS % 5.8 % (0.0-3.0); HEMATOCRIT 40.9 % (36.0-47.0); HEMOGLOBIN 12.5 g/dl (12.0-15.5); LYMPH # 2.3 10^3/uL (1.5-5.0); LYMPH % 25.9 % (24.0-44.0); MEAN CORPUSCULAR HEMOGLOBIN 27.2 pg (27.0-33.0); MEAN CORPUSCULAR HGB CONC 30.6 g/dl (32.0-36.5); MEAN CORPUSCULAR VOLUME 89.1 fl (80.0-96.0); MONO # 0.8 10^3/uL (0.0-0.8); MONO % 8.4 % (2.0-8.0); NEUTROPHILS # 5.2 10^3/uL (1.5-8.5); NEUTROPHILS % 58.8 % (36.0-66.0); PLATELET COUNT, AUTOMATED 392 10^3/uL (150-450); RED BLOOD COUNT 4.59 10^6/uL (4.00-5.40); WHITE BLOOD COUNT 8.9 10^3/uL (4.0-10.0)
[2022-04-19 21:20] LABS: ALBUMIN 3.2 G/DL (3.2-5.2); ALKALINE PHOSPHATASE 82 U/L (46-116); ALT/SGPT 21 U/L (7.0-40); AST/SGOT 20 U/L (<34); BILIRUBIN,DIRECT < 0.1 MG/DL (<0.4); BILIRUBIN,TOTAL 0.2 MG/DL (0.3-1.2); BLOOD UREA NITROGEN 30 MG/DL (9-23); CALCIUM LEVEL 10.4 MG/DL (8.3-10.6); CARBON DIOXIDE LEVEL 26 MMOL/L (20-31); CHLORIDE LEVEL 103 MMOL/L (98-107); CREATININE FOR GFR 0.87 MG/DL (0.55-1.30); GLOMERULAR FILTRATION RATE > 60.0 (>32); GLUCOSE, FASTING 126 MG/DL (74-106); POTASSIUM SERUM 4.7 MMOL/L (3.5-5.1); SODIUM LEVEL 139 MMOL/L (136-145); TOTAL PROTEIN 7.4 G/DL (5.7-8.2)
[2022-04-19 21:22] LABS: THYROID STIMULATING HORMONE 3.721 uIU/ML (0.55-4.78)
[2022-04-19 21:33] VITALS: BP 142/82
== END 2022-04-19 23:48 | disposition home or self-care (01) ==
LOC: M ED 19:24 → EDBD 19:24 → M ED 23:48
DX: F03.90 Unspecified dementia, unspecified severity, without behavioral disturbance, psychotic disturbance, mood disturbance, and anxiety (principal); I10 Essential (primary) hypertension; E78.5 Hyperlipidemia, unspecified; J44.9 Chronic obstructive pulmonary disease, unspecified; K59.00 Constipation, unspecified; Z79.82 Long term (current) use of aspirin; Z79.899 Other long term (current) drug therapy; Z91.040 Latex allergy status

== ENCOUNTER → 2022-06-12 | Outpatient (CLI) | payer MEDICARE, BC | LOC: M RAD 11:22 | PROVIDERS: ATTEND Nurse Practitioner Family | DX: R22.9 Localized swelling, mass and lump, unspecified (principal) ==

== ENCOUNTER → 2022-09-08 | Outpatient (CLI) | payer MEDICARE, BC ==
[~2022-09-08] MED LIST changes: +POTA-298 PO; -POTA1TAB14 PO
== END ==
LOC: M RAD 10:17
PROVIDERS: ATTEND Student in an Organized Health Care Education/Training Program
DX: R05.9 Cough, unspecified (principal); R91.8 Other nonspecific abnormal finding of lung field

== ENCOUNTER → 2023-01-19 | Outpatient (CLI) | payer MEDICARE, BC ==
[~2023-01-19] MED LIST changes: +SENN-111 PO; -SENN18TA PO
== END ==
LOC: M RAD 12:37
PROVIDERS: ATTEND Physician Assistant Medical
DX: R05.9 Cough, unspecified (principal); J02.9 Acute pharyngitis, unspecified

== ENCOUNTER → 2023-01-19 | Outpatient (REF) | payer MEDICARE, BC | LOC: M LAB REF 19:36 | PROVIDERS: ATTEND Physician Assistant Medical | DX: J02.9 Acute pharyngitis, unspecified (principal) ==

== ENCOUNTER → 2023-03-25 | Outpatient (CLI) | payer MEDICARE, BC ==
[~2023-03-25] MED LIST changes: +ADV250INH INH; +AMOX875T PO; +MELA3TAB49 PO; +SERT25TA85 PO; +ZOLO50TA PO; +calcium
== END ==
LOC: M CARPUL 09:35
PROVIDERS: ATTEND Family Medicine
DX: I51.7 Cardiomegaly (principal)

== ENCOUNTER → 2023-04-16 | Outpatient (CLI) | payer MEDICARE, BC | LOC: M RAD 10:54 | PROVIDERS: ATTEND Physician Assistant | DX: R91.8 Other nonspecific abnormal finding of lung field (principal); I51.7 Cardiomegaly ==

== ENCOUNTER → 2023-07-29 | Outpatient (CLI) | payer MEDICARE, BC ==
[~2023-07-29] MED LIST changes: -ASPI-161 PO; +ASPI-615 PO; -MIRA1POW3 PO; +MIRA33506 PO
== END ==
LOC: M RAD 16:40
PROVIDERS: ATTEND Family Medicine
DX: R91.1 Solitary pulmonary nodule (principal); K76.9 Liver disease, unspecified; N20.0 Calculus of kidney

== ENCOUNTER → 2023-11-25 | Outpatient (CLI) | payer MEDICARE, BC ==
[~2023-11-25] MED LIST changes: -CLOTLOT EXT; +CLOTLOT2 EXT
== END ==
LOC: M PLAIMG 15:47
PROVIDERS: ATTEND Physician Assistant Medical
DX: M43.07 Spondylolysis, lumbosacral region (principal); M16.12 Unilateral primary osteoarthritis, left hip

== ENCOUNTER 2024-06-04 08:19 | Emergency (ER) | payer MEDICARE, BC ==
[~2024-06-04 08:19] MED LIST changes: -ADV250INH INH; +ADVA1AER9 INH; -SENN-111 PO; +SENN-165 PO
[2024-06-04] MEDS: ACETAMINOPHEN 325 MG TAB PO ONE (10:43)
[2024-06-04 13:22] VITALS: BP 142/73; TEMP 97.8; O2SAT 93
[2024-06-05] MEDS ORDERED: NITR100C3 PO (19:29)
== END 2024-06-04 13:25 | disposition home or self-care (01) ==
LOC: EDBD 08:19 → M ED 11:32
DX: R52 Pain, unspecified (principal); W06.XXXA Fall from bed, initial encounter; F02.80 Dementia in other diseases classified elsewhere, unspecified severity, without behavioral disturbance, psychotic disturbance, mood disturbance, and anxiety; Z91.040 Latex allergy status; Z79.1 Long term (current) use of non-steroidal anti-inflammatories (NSAID); Z79.2 Long term (current) use of antibiotics; Z79.899 Other long term (current) drug therapy

== ENCOUNTER 2024-06-05 14:32 | Emergency (ER) | payer MEDICARE, BC ==
[~2024-06-05] VITALS: Ht 162.6 cm; Wt 68.2 kg
[2024-06-05 16:22] LABS: KETONE, URINE AUTO RFX NEGATIVE (NEGATIVE); LEUKOCYTE ESTERASE UR AUTO RFX 2+ (NEGATIVE); NITRITE, URINE AUTO RFX NEGATIVE (NEGATIVE); RBC, URINE AUTO RFX 1 /HPF (0-3); SQUAM EPITHELIAL CELL UR AURFX 1 /HPF (0-6); WBC, URINE AUTO RFX 22 /HPF (0-3)
[2024-06-05] MEDS ORDERED: NITR100C3 PO (19:29)
[2024-06-05] MEDS: NITROFURANTOIN (MACROBID) 100 MG CAP PO ONE (20:25)
[2024-06-05 20:26] VITALS: BP 137/79; TEMP 99.2; O2SAT 91
== END 2024-06-05 20:28 | disposition home or self-care (01) ==
LOC: M ED 14:32
DX: S06.0X0A Concussion without loss of consciousness, initial encounter (principal); N39.0 Urinary tract infection, site not specified; Y92.019 Unspecified place in single-family (private) house as the place of occurrence of the external cause; Y93.9 Activity, unspecified; Y99.9 Unspecified external cause status; W06.XXXA Fall from bed, initial encounter; E11.9 Type 2 diabetes mellitus without complications; J44.9 Chronic obstructive pulmonary disease, unspecified; F02.80 Dementia in other diseases classified elsewhere, unspecified severity, without behavioral disturbance, psychotic disturbance, mood disturbance, and anxiety; Z87.891 Personal history of nicotine dependence; Z91.040 Latex allergy status; Z79.1 Long term (current) use of non-steroidal anti-inflammatories (NSAID); Z79.2 Long term (current) use of antibiotics; Z79.899 Other long term (current) drug therapy

== ENCOUNTER → 2024-06-15 | Outpatient (REF) | payer MEDICARE, BC ==
[~2024-06-15] MED LIST changes: +NITR100C3 PO
[2024-06-15 11:06] LABS: BASO # 0.1 10^3/uL (0.0-0.2); BASO % 0.8 % (0.0-1.0); EOS # 0.3 10^3/uL (0.0-0.5); EOS % 4.2 % (0.0-3.0); HEMATOCRIT 46.1 % (36.0-47.0); HEMOGLOBIN 14.3 g/dl (12.0-15.5); LYMPH # 1.8 10^3/uL (1.5-5.0); LYMPH % 29.9 % (24.0-44.0); MEAN CORPUSCULAR HEMOGLOBIN 28.5 pg (27.0-33.0); MONO # 0.4 10^3/uL (0.0-0.8); MONO % 6.2 % (2.0-8.0); NEUTROPHILS # 3.5 10^3/uL (1.5-8.5); NEUTROPHILS % 58.6 % (36.0-66.0); PLATELET COUNT, AUTOMATED 323 10^3/uL (150-450); RED BLOOD COUNT 5.01 10^6/uL (4.00-5.40)
[2024-06-15 11:48] LABS: HEMOGLOBIN A1c 5.9 % (4.0-6.0)
[2024-06-15 11:50] LABS: ALBUMIN 3.2 G/DL (3.2-5.2); BILIRUBIN,TOTAL 0.3 MG/DL (0.3-1.2); CALCIUM LEVEL 10.2 MG/DL (8.3-10.6); CREATININE FOR GFR 0.97 MG/DL (0.55-1.30); FREE T4 1.21 NG/DL (0.89-1.76); POTASSIUM SERUM 4.3 MMOL/L (3.5-5.1); TOTAL PROTEIN 6.9 G/DL (5.7-8.2)
[2024-06-15 11:51] LABS: THYROID STIMULATING HORMONE 0.78 uIU/ML (0.55-4.78)
== END ==
LOC: M LAB REF 10:41
PROVIDERS: ATTEND Family Medicine
DX: F03.918 Unspecified dementia, unspecified severity, with other behavioral disturbance (principal); R29.6 Repeated falls; E07.9 Disorder of thyroid, unspecified

== ENCOUNTER → 2024-09-04 | Outpatient (CLI) | payer MEDICARE, BC | LOC: M RAD 13:03 | PROVIDERS: ATTEND Family Medicine | DX: E04.2 Nontoxic multinodular goiter (principal) ==

== ENCOUNTER → 2025-02-06 | Outpatient (REF) | payer MEDICARE, BC ==
[2025-02-06 18:36] LABS: APPEARANCE, URINE HAZY (CLEAR); BACTERIA, URINE AUTO NEGATIVE (NEGATIVE); BILIRUBIN, URINE AUTO NEGATIVE (NEGATIVE); BLOOD, URINE BLOOD NEGATIVE (NEGATIVE); CALCIUM OXALATE CRYSTALS SMALL; GLUCOSE, URINE (UA) AUTO NEGATIVE (NEGATIVE); KETONE, URINE AUTO NEGATIVE (NEGATIVE); LEUKOCYTE ESTERASE, URINE AUTO TRACE (NEGATIVE); MUCUS, URINE SMALL (NEGATIVE); NITRITE, URINE AUTO NEGATIVE (NEGATIVE); PROTEIN, URINE AUTO NEGATIVE (NEGATIVE); RBC, URINE AUTO 10 /HPF (0-3); SPECIFIC GRAVITY URINE AUTO 1.019 (1.002-1.035); SQUAMOUS EPITHELIAL CELL UR AU 1 /HPF (0-6); UROBILINOGEN, URINE AUTO 0.2 mg/dL (0.0-2.0); WBC, URINE AUTO 5 /HPF (0-3)
== END ==
LOC: M LAB REF 16:56
DX: N39.0 Urinary tract infection, site not specified (principal)

== ENCOUNTER 2025-02-15 11:57 | Inpatient (IN) | payer MEDICARE, BC ==
[~2025-02-15] VITALS: Ht 167.6 cm; Wt 61.6 kg
[2025-02-15 12:52] LABS: BASO # 0.1 10^3/uL (0.0-0.2); BASO % 1.0 % (0.0-1.0); EOS # 0.3 10^3/uL (0.0-0.5); EOS % 4.1 % (0.0-3.0); LYMPH # 1.8 10^3/uL (1.5-5.0); LYMPH % 25.7 % (24.0-44.0); MONO # 0.6 10^3/uL (0.0-0.8); MONO % 8.3 % (2.0-8.0); NEUTROPHILS # 4.3 10^3/uL (1.5-8.5); NEUTROPHILS % 60.6 % (36.0-66.0); PLATELET COUNT, AUTOMATED 286 10^3/uL (150-450)
[2025-02-15] MEDS ORDERED: MED REC IN PROGRESS XX SCH (13:05)
[2025-02-15] MEDS ORDERED: ASPI81TA26 PO (13:13)
[2025-02-15] MEDS ORDERED: FLUT1BLS5 INH (13:14)
[2025-02-15] MEDS ORDERED: HOME MED LIST COMPLETE! XX SCH (13:20)
[2025-02-15 13:27] LABS: ALT/SGPT 22.0 U/L (7.0-40); AST/SGOT 22.0 U/L (<34); CALCIUM LEVEL 10.7 MG/DL (8.3-10.6); CARBON DIOXIDE LEVEL 31.0 MMOL/L (20-31); CHLORIDE LEVEL 104.0 MMOL/L (98-107); CREATININE FOR GFR 0.93 MG/DL (0.55-1.30); GLOMERULAR FILTRATION RATE 59.9 (>32); POTASSIUM SERUM 4.4 MMOL/L (3.5-5.1); SODIUM LEVEL 144.0 MMOL/L (136-145)
[2025-02-15 13:40] LABS: KETONE, URINE AUTO RFX NEGATIVE (NEGATIVE); LEUKOCYTE ESTERASE UR AUTO RFX NEGATIVE (NEGATIVE); MUCUS, URINE RFX SMALL (NEGATIVE); NITRITE, URINE AUTO RFX NEGATIVE (NEGATIVE); RBC, URINE AUTO RFX 1 /HPF (0-3); SQUAM EPITHELIAL CELL UR AURFX 0 /HPF (0-6); WBC, URINE AUTO RFX 2 /HPF (0-3)
[2025-02-15] MEDS ORDERED: AZITHROMYCIN 250 MG TABLET PO ONE (15:05)
[2025-02-15] MEDS: cefTRIAXone SOD 1 GM in DEXTROSE 5% (D5W) ADV/MINI-BAG 50 ML IV ONE (15:37)
[2025-02-15] MEDS: AZITHROMYCIN INJ 500 MG, VIAL MATE ADAPTER 1 EACH in NS 250 ML IV ONE (17:34)
[2025-02-15] MEDS ORDERED: ALBUTEROL SULFATE 2.5 MG/0.5 ML INH CONCENTRATE NEB SOLN NEB PRN (17:45)
[2025-02-15] MEDS ORDERED: BISACODYL 10 MG SUPP PR PRN (18:50)
[2025-02-15] MEDS: ADVAIR HFA 115/21 MCG INHALER INH SCH (19:06)
[2025-02-15] MEDS: BISACODYL 10 MG SUPP PR ONE (19:16)
[2025-02-15] MEDS: OLANZapine 5 MG TAB PO SCH (20:03)
[2025-02-15] MEDS: SENNOSIDES/DOCUSATE SODIUM 8.6 MG/50MG TAB PO SCH (20:04)
[2025-02-15 21:47] VITALS: BP 169/80; TEMP 98.1; O2SAT 96
[2025-02-16 03:59] VITALS: BP 145/85; TEMP 97.7; O2SAT 95
[2025-02-16 06:43] LABS: EOS % 1.5 % (0.0-3.0); LYMPH % 13.1 % (24.0-44.0); MONO % 8.3 % (2.0-8.0); NEUTROPHILS % 76.2 % (36.0-66.0); PLATELET COUNT, AUTOMATED 301 10^3/uL (150-450)
[2025-02-16 06:44] LABS: BASO # 0.1 10^3/uL (0.0-0.2); BASO % 0.6 % (0.0-1.0); EOS # 0.2 10^3/uL (0.0-0.5); LYMPH # 1.4 10^3/uL (1.5-5.0); MONO # 0.9 10^3/uL (0.0-0.8); NEUTROPHILS # 8.3 10^3/uL (1.5-8.5)
[2025-02-16 07:08] LABS: CALCIUM LEVEL 10.6 MG/DL (8.3-10.6); CARBON DIOXIDE LEVEL 29.0 MMOL/L (20-31); CHLORIDE LEVEL 106.0 MMOL/L (98-107); CREATININE FOR GFR 0.94 MG/DL (0.55-1.30); GLOMERULAR FILTRATION RATE 59.1 (>32); POTASSIUM SERUM 4.0 MMOL/L (3.5-5.1); SODIUM LEVEL 146.0 MMOL/L (136-145)
[2025-02-16] MEDS: ENOXAPARIN 40 MG/0.4 ML SYRINGE (J1650 PER 10MG) SC SCH (09:00)
[2025-02-16] MEDS ORDERED: SERTRALINE HCL 25 MG TABLET PO SCH (09:00)
[2025-02-16] MEDS: MIRALAX *UNIT DOSE* 17 GM PACKET PO SCH (09:16)
[2025-02-16] MEDS: ATORVASTATIN 20 MG TAB PO SCH (09:17)
[2025-02-16] MEDS: AZITHROMYCIN 250 MG TABLET PO SCH (09:18)
[2025-02-16 09:19] VITALS: BP 130/80
[2025-02-16] MEDS: amLODIPine 5 MG TAB PO SCH (09:19)
[2025-02-16] MEDS: ASPIRIN 81 MG ENTERIC TABLET PO SCH (09:19)
[2025-02-16 12:00] VITALS: TEMP 97.7; O2SAT 97
[2025-02-16 14:02] VITALS: BP 160/93; TEMP 97.9; O2SAT 97
[2025-02-16] MEDS ORDERED: ONDANSETRON 4MG ORAL DISINTEGRATING TAB PO PRN (15:40)
[2025-02-16] MEDS ORDERED: POLYVINYL ALCOHOL OPHTH SOLN 15ML (LIQUITEARS) OU PRN (15:40)
[2025-02-16] MEDS ORDERED: HYOSCYAMINE SULFATE 0.125 MG SUBL TABLET SL PRN (15:40)
[2025-02-16] MEDS ORDERED: SALIVA SUBSTITUTE BTL MT PRN (15:40)
[2025-02-16] MEDS ORDERED: HALOPERIDOL LACTATE 5 MG/ML VIAL IM PRN (15:40)
[2025-02-16] MEDS ORDERED: ATROPINE SULFATE 1% OPHTH SOLN 2 ML BTL SL PRN (15:40)
[2025-02-16] MEDS ORDERED: cefTRIAXone SOD 1 GM in DEXTROSE 5% (D5W) ADV/MINI-BAG 50 ML IV SCH (16:00)
[2025-02-16] MEDS: LORazepam 1 MG TAB PO SCH (16:00)
[2025-02-16] MEDS: SERTRALINE HCL 25 MG TABLET PO SCH (23:00)
[2025-02-16] MEDS: OLANZapine ORAL DISINTEGRATING TAB 5MG PO SCH (23:26)
[2025-02-16] MEDS: MORPHINE 10 MG/0.5 ML ORAL CONCENTRATE SOLUTION U/D SL PRN (23:26)
[2025-02-16] MEDS: CEFDINIR 300 MG CAP PO SCH (23:27)
[2025-02-17] MEDS: LORazepam 0.5 MG TAB PO SCH (16:57)
[2025-02-22] MEDS ORDERED: PILL CUTTER 1 EACH XX PRN (15:15)
[2025-02-22] MEDS: LORazepam 0.5 MG TAB PO SCH (15:25)
[2025-02-25] MEDS ORDERED: MORP1SOL5 PO (09:19)
[2025-02-25] MEDS ORDERED: OLAN10TA12 PO (09:19)
[2025-02-25] MEDS ORDERED: ATIV1TAB10 PO (09:19)
[2025-02-25] MEDS ORDERED: HYOS125TA PO (09:27)
== END 2025-02-25 10:36 | disposition hospice, inpatient (51) | DRG 884 ==
LOC: EDBD 11:57 → M ED 11:57 → M ED INP 17:29 → M MSPAV 21:47
PROVIDERS: ADMIT Internal Medicine Nephrology; ATTEND Internal Medicine
DX: F03.92 Unspecified dementia, unspecified severity, with psychotic disturbance (principal); J18.9 Pneumonia, unspecified organism; J44.0 Chronic obstructive pulmonary disease with (acute) lower respiratory infection; E87.1 Hypo-osmolality and hyponatremia; F03.911 Unspecified dementia, unspecified severity, with agitation; E78.5 Hyperlipidemia, unspecified; K56.41 Fecal impaction; F34.1 Dysthymic disorder; N18.30 Chronic kidney disease, stage 3 unspecified; K59.09 Other constipation; K44.9 Diaphragmatic hernia without obstruction or gangrene; I12.9 Hypertensive chronic kidney disease with stage 1 through stage 4 chronic kidney disease, or unspecified chronic kidney disease; N20.0 Calculus of kidney; M81.0 Age-related osteoporosis without current pathological fracture; J43.9 Emphysema, unspecified; Z51.5 Encounter for palliative care; Z66 Do not resuscitate; Z79.82 Long term (current) use of aspirin; Z79.899 Other long term (current) drug therapy